=== PATIENT | female | born 1985 | race Caucasian/White ===

== ENCOUNTER 2016-12-02 18:40 | Emergency (ER) | payer OTHER ==
--- NOTE | 2016-12-02 21:18 | ED ORDER SUMMARY ---
..... Patient: BERNARDINO JACOBSON OrderSheet [facility] VisitID: [id number] [address] [place] [address] 31y, F Registration Date/Time: 12/02/2016 ORDER SHEET Weight: 58.9 kg (stated) Allergies: Latex GENERAL ORDERS: MEDICATION ORDERS: Bactrim DS PO (Tablet 800-160 mg) 2 tabs (NOW) (21:12/02/2016 [facility]) (Ack 21:17 RCollier R.N.) (21:20 RCollier R.N.) Keflex PO 500 mg (NOW) (21:14 12/02/2016 [facility]) (Ack 21:17 RCollier R.N.) (21:20 RCollier R.N.) Acetaminophen PO 1,000 mg (NOW) (21:12/02/2016 [facility]) (Ack 21:23 RCollier R.N.) (21:29 RCollier R.N.) Ibuprofen PO 600 mg (NOW) (21:22 12/02/2016 [facility]) (Ack 21:23 RCollier R.N.) (21:30 RCollier R.N.) Zofran ODT PO 4 mg (NOW) (21:22 12/02/2016 [facility]) (Ack 21:23 RCollier R.N.) (21:30 RCollier R.N.) IV FLUIDS: ORDER SHEET NOTES: [Electronically signed by Dannielle Yee R.N. (:12/02/2016)] [Electronically signed by Cleve Gupta DO (03:10 12/03/2016)] [Electronically locked/signed by Dannielle Yee R.N. (:12/02/2016)]
--- NOTE | 2016-12-02 21:18 | ED NURSING NOTES ---
Clinical Report - Nurses [facility] [address] [place] [address] 12/02/2016 18:42 Patient: BERNARDINO JACOBSON TRIAGE Triage time 19:14 Dec 02 2016. Acuity: LEVEL 4. Chief Complaint: RIGHT LOWER EXTREMITY PAIN, SWELLING and REDNESS. Alert. No acute distress. CJ COMA SCORE: [place] Coma Scale: 15- eyes open spontaneously (4); best verbal response- oriented x 4 (5); best motor response- obeys commands (6). --19:19 Fiona Jean Baptiste R.N. 19:14 12/02/16. BP: 138/69. HR: 94. RR: 18. O2 saturation: 98%. Temp: 98.2 F. Pain level now 10/10. --19:19 Fiona Jean Baptiste R.N. Weight: 58.9 kg stated. Height/Length: 63 inches Per Patient. BMI: 23. --19:14 Fiona Jean Baptiste R.N. Medications None. --19:16 Fiona Jean Baptiste R.N. Medication/allergy information source: the patient. --19:19 Fiona Jean Baptiste R.N. Allergies Latex. --19:16 Fiona Jean Baptiste R.N. History Arrived by private vehicle. Historian: patient. Primary physician (none). ( Right Toe Pain, pinky toe is red, irrigated, painful. 3 weeks off/on.). An injury may have occurred. This occurred (3 weeks). She has had trouble walking. 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 PAST MEDICAL HX: Tetanus status: up-to-date. Last normal menstrual period- few days ago. Denies current . SOCIAL HX: Smoker- current status unknown (cigarette). Occasional alcohol use. History of drug use: marijuana. FALL RISK ASSESSMENT: Fall risk assessment completed. No fall risk identified. NUTRITIONAL RISK ASSESSMENT: The nutritional risk assessment revealed no deficiencies. FUNCTIONAL ASSESSMENT: Functional assessment: no impairments noted. LEARNING NEEDS ASSESSMENT: The learning needs assessment revealed no barriers. SKIN INTEGRITY ASSESSMENT: Skin integrity risk assessment completed. No skin integrity risk identified. --19:19 Fiona Jean Baptiste R.N. PROBLEMS: Abscess Check. Abscess. Immunizations. LNMP - Last Normal Menstrual Period. --19:16 Fiona Jean Baptiste R.N. ADDITIONAL SURGERIES: Splenectomy. --19:16 Fiona Jean Baptiste R.N. Interventions ID band on patient. To room. --19:19 Fiona Jean Baptiste R.N. PHYSICAL ASSESSMENT Ambulatory to room. GENERAL / NEURO / PSYCH: Oriented X 4. Alert. Appears in no acute distress. EXTREMITIES: Neuro-vascular status intact to the extremity. Right fifth toe: tenderness, swelling and erythema. SKIN: Skin is warm and dry. --20:59 Dannielle Yee R.N. NURSING PROGRESS NOTES Call light placed in reach. Patient placed in chair. --21:00 Dannielle Yee R.N. Patient ready for evaluation- chart flagged. --21:00 Dannielle eYe R.N. 21:12/02/16. BP: 129/84. HR: 98. RR: 18. O2 saturation: 98% on room air. [place] pain scale: 4/10. --21:02 Dannielle Yee R.N. 21:12/02/2016 Bactrim DS (Sulfamethoxazole-TMP DS) PO Tablets 2 tab given. Allergies verified and confirmed 5 rights. --21:20 Dannielle Yee R.N. 21:12/02/2016 Keflex (Cephalexin) PO Tablets 500 mg given. Allergies verified and confirmed 5 rights. --21:20 Dannielle Yee R.N. 21:25 12/02/2016 Acetaminophen (APAP) PO Tablets 1000 mg given. Allergies verified and confirmed 5 rights. --21:29 Dannielle Yee R.N. 21:12/02/2016 Ibuprofen PO Tablets 600 mg given. Allergies verified and confirmed 5 rights. --21:30 Dannielle Yee R.N. 21:25 12/02/2016 Zofran ODT (Ondansetron) PO Oral Disintegrating Tablets 4 mg given. Allergies verified and confirmed 5 rights. --21:30 Dannielle Yee R.N. DISPOSITION / DISCHARGE Condition at departure: stable. No learning barriers present. Discharge instructions provided and reviewed with the patient. Reviewed medication(s) side effects, precautions, dosing and course information. Prescription(s) given to the patient. Patient verbalized understanding. Written instructions provided in Martiniquais. The patient was discharged home. She left the Emergency Department ambulatory and via private vehicle. Implementation Technician driving. --21:31 Dannielle Yee R.N. 21:30 12/02/16. BP: deferred. HR: deferred. RR: deferred. O2 saturation: deferred. Temp: deferred. Pain level now deferred. --21:31 Dannielle Yee R.N. Locked/Released at 12/02/2016 21:31 by Dannielle Yee R.N.
--- NOTE | 2016-12-02 21:18 | ED ORDER SUMMARY ---
..... Patient: BERNARDINO JACOBSON OrderSheet [facility] VisitID: [id number] [address] [place] [address] 31y, F Registration Date/Time: 12/02/2016 ORDER SHEET Weight: 58.9 kg (stated) Allergies: Latex GENERAL ORDERS: MEDICATION ORDERS: Bactrim DS PO (Tablet 800-160 mg) 2 tabs (NOW) (21:12/02/2016 [facility]) (Ack 21:17 RCollier R.N.) (21:20 RCollier R.N.) Keflex PO 500 mg (NOW) (21:14 12/02/2016 [facility]) (Ack 21:17 RCollier R.N.) (21:20 RCollier R.N.) Acetaminophen PO 1,000 mg (NOW) (21:12/02/2016 [facility]) (Ack 21:23 RCollier R.N.) (21:29 RCollier R.N.) Ibuprofen PO 600 mg (NOW) (21:22 12/02/2016 [facility]) (Ack 21:23 RCollier R.N.) (21:30 RCollier R.N.) Zofran ODT PO 4 mg (NOW) (21:22 12/02/2016 [facility]) (Ack 21:23 RCollier R.N.) (21:30 RCollier R.N.) IV FLUIDS: ORDER SHEET NOTES: [Electronically signed by Dannielle Yee R.N. (:12/02/2016)] [Electronically signed by Cleve Gupta DO (03:10 12/03/2016)] [Electronically locked/signed by Dannielle Yee R.N. (:12/02/2016)]
--- NOTE | 2016-12-02 21:18 | ED NURSING NOTES ---
Clinical Report - Nurses [facility] [address] [place] [address] 12/02/2016 18:42 Patient: BERNARDINO JACOBSON TRIAGE Triage time 19:14 Dec 02 2016. Acuity: LEVEL 4. Chief Complaint: RIGHT LOWER EXTREMITY PAIN, SWELLING and REDNESS. Alert. No acute distress. CJ COMA SCORE: [place] Coma Scale: 15- eyes open spontaneously (4); best verbal response- oriented x 4 (5); best motor response- obeys commands (6). --19:19 Fiona Jean Baptiste R.N. 19:14 12/02/16. BP: 138/69. HR: 94. RR: 18. O2 saturation: 98%. Temp: 98.2 F. Pain level now 10/10. --19:19 Fiona Jean Baptiste R.N. Weight: 58.9 kg stated. Height/Length: 63 inches Per Patient. BMI: 23. --19:14 Fiona Jean Baptiste R.N. Medications None. --19:16 Fiona Jean Baptiste R.N. Medication/allergy information source: the patient. --19:19 Fiona Jean Baptiste R.N. Allergies Latex. --19:16 Fiona Jean Baptiste R.N. History Arrived by private vehicle. Historian: patient. Primary physician (none). ( Right Toe Pain, pinky toe is red, irrigated, painful. 3 weeks off/on.). An injury may have occurred. This occurred (3 weeks). She has had trouble walking. 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 PAST MEDICAL HX: Tetanus status: up-to-date. Last normal menstrual period- few days ago. Denies current . SOCIAL HX: Smoker- current status unknown (cigarette). Occasional alcohol use. History of drug use: marijuana. FALL RISK ASSESSMENT: Fall risk assessment completed. No fall risk identified. NUTRITIONAL RISK ASSESSMENT: The nutritional risk assessment revealed no deficiencies. FUNCTIONAL ASSESSMENT: Functional assessment: no impairments noted. LEARNING NEEDS ASSESSMENT: The learning needs assessment revealed no barriers. SKIN INTEGRITY ASSESSMENT: Skin integrity risk assessment completed. No skin integrity risk identified. --19:19 Fiona Jean Baptiste R.N. PROBLEMS: Abscess Check. Abscess. Immunizations. LNMP - Last Normal Menstrual Period. --19:16 Fiona Jean Baptiste R.N. ADDITIONAL SURGERIES: Splenectomy. --19:16 Fiona Jean Baptiste R.N. Interventions ID band on patient. To room. --19:19 Fiona Jean Baptiste R.N. PHYSICAL ASSESSMENT Ambulatory to room. GENERAL / NEURO / PSYCH: Oriented X 4. Alert. Appears in no acute distress. EXTREMITIES: Neuro-vascular status intact to the extremity. Right fifth toe: tenderness, swelling and erythema. SKIN: Skin is warm and dry. --20:59 Dannielle Yee R.N. NURSING PROGRESS NOTES Call light placed in reach. Patient placed in chair. --21:00 Dannielle Yee R.N. Patient ready for evaluation- chart flagged. --21:00 Dannielle Yee R.N. 21:12/02/16. BP: 129/84. HR: 98. RR: 18. O2 saturation: 98% on room air. [place] pain scale: 4/10. --21:02 Dannielle Yee R.N. 21:12/02/2016 Bactrim DS (Sulfamethoxazole-TMP DS) PO Tablets 2 tab given. Allergies verified and confirmed 5 rights. --21:20 Dannielle Yee R.N. 21:12/02/2016 Keflex (Cephalexin) PO Tablets 500 mg given. Allergies verified and confirmed 5 rights. --21:20 Dannielle Yee R.N. 21:25 12/02/2016 Acetaminophen (APAP) PO Tablets 1000 mg given. Allergies verified and confirmed 5 rights. --21:29 Dannielle Yee R.N. 21:12/02/2016 Ibuprofen PO Tablets 600 mg given. Allergies verified and confirmed 5 rights. --21:30 Dannielle Yee R.N. 21:25 12/02/2016 Zofran ODT (Ondansetron) PO Oral Disintegrating Tablets 4 mg given. Allergies verified and confirmed 5 rights. --21:30 Dannielle Yee R.N. DISPOSITION / DISCHARGE Condition at departure: stable. No learning barriers present. Discharge instructions provided and reviewed with the patient. Reviewed medication(s) side effects, precautions, dosing and course information. Prescription(s) given to the patient. Patient verbalized understanding. Written instructions provided in Australian. The patient was discharged home. She left the Emergency Department ambulatory and via private vehicle. Information Technology Project Manager driving. --21:31 Dannielle Yee R.N. 21:30 12/02/16. BP: deferred. HR: deferred. RR: deferred. O2 saturation: deferred. Temp: deferred. Pain level now deferred. --21:31 Dannielle Yee R.N. Locked/Released at 12/02/2016 21:31 by Dannielle Yee R.N.
--- NOTE | 2016-12-02 21:18 | ED CLINICAL REPORT ---
Clinical Report - Physicians/Mid Levels [facility] [address] [place] [address] 12/02/2016 18:42 Patient: BERNARDINO JACOBSON Time Seen: 21:06. Arrived- By private vehicle. Historian- patient. HISTORY OF PRESENT ILLNESS Chief Complaint: LOWER EXTREMITY PAIN and SWELLING. Modifying factors- worsened by walking. Relieved by remaining still. Severity is described as being moderate. The quality is noted to be "pain". No radiation. This started about 3 weeks ago and is still present. It was gradual in onset and has been waxing/waning. Symptoms located in the area of the right foot. The patient has had redness (right 5th toe). She has had swelling, (right 5th toe). She has had difficulty walking. No bladder dysfunction, bowel dysfunction, sensory loss or motor loss. Patient notes the possibility of an injury. Similar symptoms previously: None. Recent medical care: Not recently seen/assessed. REVIEW OF SYSTEMS Last normal menstrual period- 3 days ago. No cough, chest pain, difficulty breathing, fever or neck pain. No back pain, headache, sore throat, abdominal pain or vomiting. No diarrhea, black stools, difficulty with urination or bloody stools. All systems otherwise negative, except as recorded above. PAST HISTORY See nurses notes. No history of DVT, heart disease, lung disease, renal disease or hypertension. No history of diabetes mellitus. ( Abscess). Surgeries: Splenectomy. Medications: None. Allergies: Latex. SOCIAL HISTORY Smoker- current status unknown. Occasional alcohol use. History of drug use: marijuana. Not an IV drug user. ADDITIONAL NOTES The nursing notes have been reviewed. PHYSICAL EXAM Vital Signs: 12/02/2016 19:14 BP: 138/69. HR: 94. RR: 18. O2 saturation: 98%. Temp: 98.2 F. Appearance: Alert. Oriented X3. Patient in mild distress. Eyes: Eyes normal inspection. No pale conjunctivae or scleral icterus. ENT: Pharynx normal. No pharyngeal erythema or tonsillar exudate. Neck: Normal inspection. Neck supple. CVS: Normal heart rate and rhythm. Heart sounds normal. Respiratory: No respiratory distress. Breath sounds normal. Abdomen: Soft and nontender. Back: Normal inspection. Skin: No cyanosis. Skin warm and dry. (erythema right 5th toe). No pallor or diaphoresis. Extremities: Right foot: mild erythema and swelling and moderate tenderness located in the fifth toe(s). Neurovascular intact distally. No laceration, abrasion, ecchymosis, puncture wound or foreign body. No deformity. No lower extremity edema. No calf tenderness. Extremities otherwise negative. Neuro, Vascular and Tendons: No pulse deficit present. Neuro: Oriented X 3. No motor deficit. LABS, X-RAYS, AND EKG Pulse Oximetry: 12/02/2016 19:14 O2 saturation: 98%. (FIO2 - room air). Interpretation: normal. PROGRESS AND PROCEDURES Course of Care: Acetaminophen 1000 mg PO given. Ibuprofen 600 mg PO given. Bactrim DS 2 tabs PO. Keflex 500 mg PO given. Zofran 4 mg ODT PO given. Pt with subacute symptoms. No systemic symtpoms / fever. Nothing evident to I&D. No history of IDU per pt - septic emboli unlikely. No h/o a. fib. Pt will need close out pt follow up - she agrees to do this or return for new or worsening or not improving symptoms or any concerns. Patient/family counseled. Old ED records reviewed. Disposition: Discharged. Condition: stable and improved. CLINICAL IMPRESSION Cellulitis of the right 5th toe. Occasional substance abuse- tobacco (cigarettes), marijuana. History of splenectomy. INSTRUCTIONS Elevate affected areas above chest level. Warnings: Further evaluation is necessary. It is very important to follow up with a physician. INFECTION: Watch for signs of infection (increasing heat and redness, pus-like drainage, swelling, or increased pain). Return or see your doctor if these signs occur. GENERAL WARNINGS: Return or contact your physician immediately if your condition worsens or changes unexpectedly, if not improving as expected, or if other problems arise. return for new or worsening or not improving symptoms or any concerns. Prescription Medications: Cephalexin 500 mg: take 1 capsule orally every 6 hours for 10 days. No refill. Trimethoprim-Sulfamethoxazole take 1 tablet orally every 12 hours for 10 days. No refill. OTC Medications: Acetaminophen (available over the counter): take according to label instructions. Motrin (available over the counter): take according to label instructions. Follow-up: Follow up with your doctor tomorrow. Follow-up with: Rhtet Gonzalez DPM, Podiatry, , [address] [place] [address]. [address], [place], [address] Follow up in about two days. Follow-up with: [facility], , , [address] [place] [address], , [place], ; [facility], , , [address], [place] [address]; [facility], Family Practice, , [address] [place] [address], , [place] [address] Follow up in about two days. (Electronically signed by Cleve Gupta DO 12/03/2016 3:10)
--- NOTE | 2016-12-02 21:18 | ED CLINICAL REPORT ---
Clinical Report - Physicians/Mid Levels [facility] [address] [place] [address] 12/02/2016 18:42 Patient: BERNARDINO JACOBSON Time Seen: 21:06. Arrived- By private vehicle. Historian- patient. HISTORY OF PRESENT ILLNESS Chief Complaint: LOWER EXTREMITY PAIN and SWELLING. Modifying factors- worsened by walking. Relieved by remaining still. Severity is described as being moderate. The quality is noted to be "pain". No radiation. This started about 3 weeks ago and is still present. It was gradual in onset and has been waxing/waning. Symptoms located in the area of the right foot. The patient has had redness (right 5th toe). She has had swelling, (right 5th toe). She has had difficulty walking. No bladder dysfunction, bowel dysfunction, sensory loss or motor loss. Patient notes the possibility of an injury. Similar symptoms previously: None. Recent medical care: Not recently seen/assessed. REVIEW OF SYSTEMS Last normal menstrual period- 3 days ago. No cough, chest pain, difficulty breathing, fever or neck pain. No back pain, headache, sore throat, abdominal pain or vomiting. No diarrhea, black stools, difficulty with urination or bloody stools. All systems otherwise negative, except as recorded above. PAST HISTORY See nurses notes. No history of DVT, heart disease, lung disease, renal disease or hypertension. No history of diabetes mellitus. ( Abscess). Surgeries: Splenectomy. Medications: None. Allergies: Latex. SOCIAL HISTORY Smoker- current status unknown. Occasional alcohol use. History of drug use: marijuana. Not an IV drug user. ADDITIONAL NOTES The nursing notes have been reviewed. PHYSICAL EXAM Vital Signs: 12/02/2016 19:14 BP: 138/69. HR: 94. RR: 18. O2 saturation: 98%. Temp: 98.2 F. Appearance: Alert. Oriented X3. Patient in mild distress. Eyes: Eyes normal inspection. No pale conjunctivae or scleral icterus. ENT: Pharynx normal. No pharyngeal erythema or tonsillar exudate. Neck: Normal inspection. Neck supple. CVS: Normal heart rate and rhythm. Heart sounds normal. Respiratory: No respiratory distress. Breath sounds normal. Abdomen: Soft and nontender. Back: Normal inspection. Skin: No cyanosis. Skin warm and dry. (erythema right 5th toe). No pallor or diaphoresis. Extremities: Right foot: mild erythema and swelling and moderate tenderness located in the fifth toe(s). Neurovascular intact distally. No laceration, abrasion, ecchymosis, puncture wound or foreign body. No deformity. No lower extremity edema. No calf tenderness. Extremities otherwise negative. Neuro, Vascular and Tendons: No pulse deficit present. Neuro: Oriented X 3. No motor deficit. LABS, X-RAYS, AND EKG Pulse Oximetry: 12/02/2016 19:14 O2 saturation: 98%. (FIO2 - room air). Interpretation: normal. PROGRESS AND PROCEDURES Course of Care: Acetaminophen 1000 mg PO given. Ibuprofen 600 mg PO given. Bactrim DS 2 tabs PO. Keflex 500 mg PO given. Zofran 4 mg ODT PO given. Pt with subacute symptoms. No systemic symtpoms / fever. Nothing evident to I&D. No history of IDU per pt - septic emboli unlikely. No h/o a. fib. Pt will need close out pt follow up - she agrees to do this or return for new or worsening or not improving symptoms or any concerns. Patient/family counseled. Old ED records reviewed. Disposition: Discharged. Condition: stable and improved. CLINICAL IMPRESSION Cellulitis of the right 5th toe. Occasional substance abuse- tobacco (cigarettes), marijuana. History of splenectomy. INSTRUCTIONS Elevate affected areas above chest level. Warnings: Further evaluation is necessary. It is very important to follow up with a physician. INFECTION: Watch for signs of infection (increasing heat and redness, pus-like drainage, swelling, or increased pain). Return or see your doctor if these signs occur. GENERAL WARNINGS: Return or contact your physician immediately if your condition worsens or changes unexpectedly, if not improving as expected, or if other problems arise. return for new or worsening or not improving symptoms or any concerns. Prescription Medications: Cephalexin 500 mg: take 1 capsule orally every 6 hours for 10 days. No refill. Trimethoprim-Sulfamethoxazole take 1 tablet orally every 12 hours for 10 days. No refill. OTC Medications: Acetaminophen (available over the counter): take according to label instructions. Motrin (available over the counter): take according to label instructions. Follow-up: Follow up with your doctor tomorrow. Follow-up with: Rhett Gonzalez DPM, Podiatry, , [address] [place] [address]. [address], [place], [address] Follow up in about two days. Follow-up with: [facility], , , [address] [place] [address], , [place], ; [facility], , , [address], [place] [address]; [facility], Family Practice, , [address] [place] [address], , [place] [address] Follow up in about two days. (Electronically signed by Cleve Gupta DO 12/03/2016 3:10)
--- NOTE | 2016-12-03 03:11 | ED MAR SUMMARY ---
..... Medication Administration Record [facility] [address] [place] [address] Patient: BERNARDINO JACOBSON Visit ID: [id number] 31y, F Weight: 58.9 kg Height/Length: 63 in BMI: 23 ALLERGIES: Latex Given :12/02/2016 Dannielle Yee R.N. Medication Administered: BACTRIM DS [PO] (SULFAMETHOXAZOLE-TMP DS), Dose: 2 tab Tablets PO. Medication Ordered: Bactrim DS PO (Tablet 800-160 mg) 2 tabs (NOW). Given 12/02/2016 Dannielle Yee R.N. Medication Administered: KEFLEX [PO] (CEPHALEXIN), Dose: 500 mg Tablets PO. Medication Ordered: Keflex PO 500 mg (NOW). Given 12/02/2016 Dannielle Yee R.N. Medication Administered: ACETAMINOPHEN [PO] (APAP), Dose: 1000 mg Tablets PO. Medication Ordered: Acetaminophen PO 1,000 mg (NOW). Given 12/02/2016 Dannielle Yee R.N. Medication Administered: IBUPROFEN [PO], Dose: 600 mg Tablets PO. Medication Ordered: Ibuprofen PO 600 mg (NOW). Given 12/02/2016 Dannielle Yee R.N. Medication Administered: ZOFRAN ODT [PO] (ONDANSETRON), Dose: 4 mg Oral Disintegrating Tablets PO. Medication Ordered: Zofran ODT PO 4 mg (NOW).
--- NOTE | 2016-12-03 03:11 | ED MED RECONCILIATION SUMMARY ---
Patient: BERNARDINO JACOBSON Medication Reconciliation Report [facility] VisitID: [id number] [place] [address] 31y, F Registration Date/Time: 12/02/2016 Weight: 58.9 kg Height/Length: 63 in. BMI: 23.0 ALLERGIES: Latex The patient's Home Medications are listed below: NONE. The source(s) of the original Home Medication information: patient The following Medications were given to the patient in the Emergency Department: Bactrim DS [PO] PO 2 tab, administered: 12/02/2016 9:19:00 PM Keflex [PO] PO 500 mg, administered: 12/02/2016 9:19:00 PM Acetaminophen [PO] PO 1000 mg, administered: 12/02/2016 9:25:00 PM Ibuprofen [PO] PO 600 mg, administered: 12/02/2016 9:25:00 PM Zofran ODT [PO] PO 4 mg, administered: 12/02/2016 9:25:00 PM The following Medications were prescribed to the patient: Acetaminophen (available over the counter): take according to label instructions. -- Cleve Gupta DO Motrin (available over the counter): take according to label instructions. -- Cleve Gupta DO Cephalexin 500 mg: take 1 capsule orally every 6 hours for 10 days. No refill. -- Cleve Gupta DO Trimethoprim-Sulfamethoxazole take 1 tablet orally every 12 hours for 10 days. No refill. -- Cleve Gupta DO
--- NOTE | 2016-12-03 03:11 | ED MED RECONCILIATION SUMMARY ---
Patient: BERNARDINO JACOBSON Medication Reconciliation Report [facility] VisitID: [id number] [place] [address] 31y, F Registration Date/Time: 12/02/2016 Weight: 58.9 kg Height/Length: 63 in. BMI: 23.0 ALLERGIES: Latex The patient's Home Medications are listed below: NONE. The source(s) of the original Home Medication information: patient The following Medications were given to the patient in the Emergency Department: Bactrim DS [PO] PO 2 tab, administered: 12/02/2016 9:19:00 PM Keflex [PO] PO 500 mg, administered: 12/02/2016 9:19:00 PM Acetaminophen [PO] PO 1000 mg, administered: 12/02/2016 9:25:00 PM Ibuprofen [PO] PO 600 mg, administered: 12/02/2016 9:25:00 PM Zofran ODT [PO] PO 4 mg, administered: 12/02/2016 9:25:00 PM The following Medications were prescribed to the patient: Acetaminophen (available over the counter): take according to label instructions. -- Cleve Gupta DO Motrin (available over the counter): take according to label instructions. -- Cleve Gupta DO Cephalexin 500 mg: take 1 capsule orally every 6 hours for 10 days. No refill. -- Cleve Gupta DO Trimethoprim-Sulfamethoxazole take 1 tablet orally every 12 hours for 10 days. No refill. -- Cleve Gupta DO
--- NOTE | 2016-12-03 03:11 | ED DISCHARGE INSTRUCTIONS ---
Patient: BERNARDINO JACOBSON General Instructions [facility] VisitID: [id number] [address] [place] [address] 31y, F Registration Date/Time: 12/02/2016 Cellulitis of the right 5th toe. Occasional substance abuse- tobacco (cigarettes), marijuana. History of splenectomy. INSTRUCTIONS Elevate affected areas above chest level. Warnings: Further evaluation is necessary. It is very important to follow up with a physician. INFECTION: Watch for signs of infection (increasing heat and redness, pus-like drainage, swelling, or increased pain). Return or see your doctor if these signs occur. GENERAL WARNINGS: Return or contact your physician immediately if your condition worsens or changes unexpectedly, if not improving as expected, or if other problems arise. return for new or worsening or not improving symptoms or any concerns. Prescription Medications: Cephalexin 500 mg: take 1 capsule orally every 6 hours for 10 days. No refill. Trimethoprim-Sulfamethoxazole take 1 tablet orally every 12 hours for 10 days. No refill. OTC Medications: Acetaminophen (available over the counter): take according to label instructions. Motrin (available over the counter): take according to label instructions. Follow-up: Follow up with your doctor tomorrow. Follow-up with: Rhett Gonzalez DPM, Podiatry, , [address] [place] [address]. [address], [place] [address] Follow up in about two days. Follow-up with: [facility], , , [address] [place] [address], , [place], ; [facility], , , [address], [place] [address]; [facility], Family Practice, , [address] [place] [address] Follow up in about two days. ADDITIONAL INFORMATION Cellulitis You have an infection of the skin known as cellulitis. This usually starts with a scrape, cut, insect bite, blister or other opening in the skin which becomes infected. This is a serious condition. It must be watched closely to be sure the infection is not spreading. With antibiotic treatment, the size of the red area will gradually shrink in size until the skin returns to normal. This will take 7-10 days. The red area should never increase in size once the antibiotic medicine has been started. Occasionally, an infection will be resistant to one antibiotic and another one will have to be used. Home Care: 1) Limit the use of the affected part, since excess movement can cause the infection to spread. 2) If the infection is on your leg, walk as little as possible during the first few days of the treatment. Keep your leg elevated while sitting. This will reduce swelling. 3) Take all of the antibiotic medicine exactly as directed until it is gone. Be careful not to miss any doses, especially during the first seven days. Follow Up with your doctor or this facility as directed. Check the infected area daily for the warning signs listed below. Get Prompt Medical Attention if any of the following occur: -- Spreading area of redness -- Increasing swelling or pain -- Appearance of pus or drainage -- Fever over 100.4 F (38.0 C) oral, or over 101.4 F (38.6 C) rectal, after two days on antibiotics Marijuana Abuse Marijuana is the most widely used illegal drug in the [place]. It is called by various names such as pot, weed, blunts, grass, reefer, ganja, hash, hashish. It is usually smoked but can be mixed with foods or brewed as a tea. It is sometimes sold with PCP (Saulo Dust) or amphetamine mixed in it. These drugs can cause other harmful side effects. Marijuana can cause the following effects: Changes in mood (stimulated, happy, drowsy, depressed, paranoid) Hallucinations Increased heart rate and blood pressure Increased appetite Time distortion, difficulty concentrating, impaired memory Lung damage (similar to cigarettes with chronic cough, wheezing, frequent colds and bronchitis) You can become psychologically dependent on marijuana. That means the craving to use the drug is emotional or psychological rather than due to physical withdrawal. Is Marijuana Running Your Life? Here are some of the signs: Relying on marijuana to feel good, forget problems, deal with stress or to relax Wanting to be alone most of the time or only with others who use drugs Losing interest in things that used to be important Changes in school or job performance or attendance Spending a lot of time thinking about how to get marijuana Stealing or selling your things so you can buy marijuana Unable to stop using even though you may want to quit Increasing anxiety, anger,or depression Sleeping too much, changes in eating habits (weight loss or gain) Needing to use more to get the same effect Home Care Once you have become addicted to any drug, quitting is hard to do. Most people find they can't quit without help. So, dont try to do this alone. Talk to someone you trust who can support you. Seek professional help. Avoid people and places where drugs are used. That only increases the temptation to use. Follow Up with your doctor or as advised by our staff. For more information or a referral to a treatment center in your area, contact: Your local mental health center or the National Alcohol and Substance Abuse Information Center (811)-974-2832 www.addictioncareMojeek.[employer] [place] on Alcoholism and Drug Dependence 788-202-AGPI www.ncadd.org Marijuana Anonymous 961-058-3021 www.marijuana-anonymous.org Get Prompt Medical Attention if any of the following occur: You feel extreme depression, fear, anxiety, or anger toward yourself or others You feel out of control You feel that you may try to harm yourself or another Cephalexin Monohydrate Oral tablet What is this medicine? CEPHALEXIN (sef a FRANSISCA in) is a cephalosporin antibiotic. It is used to treat certain kinds of bacterial infections It will not work for colds, flu, or other viral infections. How should I use this medicine? Take this medicine by mouth with a full glass of water. Follow the directions on the prescription label. This medicine can be taken with or without food. Take your medicine at regular intervals. Do not take your medicine more often than directed. Take all of your medicine as directed even if you think you are better. Do not skip doses or stop your medicine early. Talk to your vacuum plastic forming machine operator regarding the use of this medicine in children. While this drug may be prescribed for selected conditions, precautions do apply. What side effects may I notice from receiving this medicine? Side effects that you should report to your doctor or health customer care specialist as soon as possible: allergic reactions like skin rash, itching or hives, swelling of the face, lips, or tongue breathing problems pain or trouble passing urine redness, blistering, peeling or loosening of the skin, including inside the mouth severe or watery diarrhea unusually weak or tired yellowing of the eyes, skin Side effects that usually do not require medical attention (report to your doctor or health customer care specialist if they continue or are bothersome): gas or heartburn genital or anal irritation headache joint or muscle pain nausea, vomiting What may interact with this medicine? probenecid some other antibiotics What if I miss a dose? If you miss a dose, take it as soon as you can. If it is almost time for your next dose, take only that dose. Do not take double or extra doses. There should be at least 4 to 6 hours between doses. Where should I keep my medicine? Keep out of the reach of children. Store at room temperature between 59 and 86 degrees F (15 and 30 degrees C). Throw away any unused medicine after the expiration date. What should I tell my health care provider before I take this medicine? They need to know if you have any of these conditions: kidney disease stomach or intestine problems, especially colitis an unusual or allergic reaction to cephalexin, other cephalosporins, penicillins, other antibiotics, medicines, foods, dyes or preservatives or trying to get breast-feeding What should I watch for while using this medicine? Tell your doctor or health customer care specialist if your symptoms do not begin to improve in a few days. Do not treat diarrhea with over the counter products. Contact your doctor if you have diarrhea that lasts more than 2 days or if it is severe and watery. If you have diabetes, you may get a false-positive result for sugar in your urine. Check with your doctor or health customer care specialist. Sulfamethoxazole, Trimethoprim Oral tablet What is this medicine? SULFAMETHOXAZOLE; TRIMETHOPRIM or SMX-TMP (suhl fuh meth OK shefali zohl; trye METH oh prim) is a combination of a sulfonamide antibiotic and a second antibiotic, trimethoprim. It is used to treat or prevent certain kinds of bacterial infections. It will not work for colds, flu, or other viral infections. How should I use this medicine? Take this medicine by mouth with a full glass of water. Follow the directions on the prescription label. Take your medicine at regular intervals. Do not take it more often than directed. Do not skip doses or stop your medicine early. Talk to your vacuum plastic forming machine operator regarding the use of this medicine in children. Special care may be needed. This medicine has been used in children as young as 2 months of age. What side effects may I notice from receiving this medicine? Side effects that you should report to your doctor or health customer care specialist as soon as possible: allergic reactions like skin rash or hives, swelling of the face, lips, or tongue breathing problems fever or chills, sore throat irregular heartbeat, chest pain joint or muscle pain pain or difficulty passing urine red pinpoint spots on skin redness, blistering, peeling or loosening of the skin, including inside the mouth unusual bleeding or bruising unusually weak or tired yellowing of the eyes or skin Side effects that usually do not require medical attention (report to your doctor or health customer care specialist if they continue or are bothersome): diarrhea dizziness headache loss of appetite nausea, vomiting nervousness What may interact with this medicine? Do not take this medicine with any of the following medications: aminobenzoate potassium dofetilide metronidazole This medicine may also interact with the following medications: GUILLAUME inhibitors like benazepril, enalapril, lisinopril, and ramipril cyclosporine digoxin diuretics indomethacin medicines for diabetes methenamine methotrexate phenytoin potassium supplements pyrimethamine sulfinpyrazone tricyclic antidepressants warfarin What if I miss a dose? If you miss a dose, take it as soon as you can. If it is almost time for your next dose, take only that dose. Do not take double or extra doses. Where should I keep my medicine? Keep out of the reach of children. Store at room temperature between 20 to 25 degrees C (68 to 77 degrees F). Protect from light. Throw away any unused medicine after the expiration date. What should I tell my health care provider before I take this medicine? They need to know if you have any of these conditions: anemia asthma being treated with anticonvulsants if you frequently drink alcohol containing drinks kidney disease liver disease low level of folic acid or [id number] dehydrogenase poor nutrition or malabsorption porphyria severe allergies thyroid disorder an unusual or allergic reaction to sulfamethoxazole, trimethoprim, sulfa drugs, other medicines, foods, dyes, or preservatives or trying to get breast-feeding What should I watch for while using this medicine? Tell your doctor or health customer care specialist if your symptoms do not improve. Drink several glasses of water a day to reduce the risk of kidney problems. Do not treat diarrhea with over the counter products. Contact your doctor if you have diarrhea that lasts more than 2 days or if it is severe and watery. This medicine can make you more sensitive to the sun. Keep out of the sun. If you cannot avoid being in the sun, wear protective clothing and use a sunscreen. Do not use sun lamps or tanning beds/booths. Acetaminophen Oral tablet What is this medicine? ACETAMINOPHEN (a set a JERONIMO omega fen) is a pain reliever. It is used to treat mild pain and fever. How should I use this medicine? Take this medicine by mouth with a glass of water. Follow the directions on the package or prescription label. Take your medicine at regular intervals. Do not take your medicine more often than directed. Talk to your vacuum plastic forming machine operator regarding the use of this medicine in children. While this drug may be prescribed for children as young as 6 years of age for selected conditions, precautions do apply. What side effects may I notice from receiving this medicine? Side effects that you should report to your doctor or health customer care specialist as soon as possible: allergic reactions like skin rash, itching or hives, swelling of the face, lips, or tongue breathing problems fever or sore throat redness, blistering, peeling or loosening of the skin, including inside the mouth trouble passing urine or change in the amount of urine unusual bleeding or bruising unusually weak or tired yellowing of the eyes or skin Side effects that usually do not require medical attention (report to your doctor or health customer care specialist if they continue or are bothersome): headache nausea, stomach upset What may interact with this medicine? alcohol imatinib isoniazid other medicines with acetaminophen What if I miss a dose? If you miss a dose, take it as soon as you can. If it is almost time for your next dose, take only that dose. Do not take double or extra doses. Where should I keep my medicine? Keep out of reach of children. Store at room temperature between 20 and 25 degrees C (68 and 77 degrees F). Protect from moisture and heat. Throw away any unused medicine after the expiration date. What should I tell my health care provider before I take this medicine? They need to know if you have any of these conditions: if you frequently drink alcohol containing drinks liver disease an unusual or allergic reaction to acetaminophen, other medicines, foods, dyes or preservatives or trying to get breast-feeding What should I watch for while using this medicine? Tell your doctor or health customer care specialist if the pain lasts more than 10 days (5 days for children), if it gets worse, or if there is a new or different kind of pain. Also, check with your doctor if a fever lasts for more than 3 days. Do not take other medicines that contain acetaminophen with this medicine. Always read labels carefully. If you have questions, ask your doctor or pharmacist. If you take too much acetaminophen get medical help right away. Too much acetaminophen can be very dangerous and cause liver damage. Even if you do not have symptoms, it is important to get help right away. Ibuprofen Oral tablet What is this medicine? IBUPROFEN (eye BYOO proe fen) is a non-steroidal anti-inflammatory drug (NSAID). It is used for dental pain, fever, headaches or migraines, osteoarthritis, rheumatoid arthritis, or painful monthly periods. It can also relieve minor aches and pains caused by a cold, flu, or sore throat. How should I use this medicine? Take this medicine by mouth with a glass of water. Follow the directions on the prescription label. Take this medicine with food if your stomach gets upset. Try to not lie down for at least 10 minutes after you take the medicine. Take your medicine at regular intervals. Do not take your medicine more often than directed. A special MedGuide will be given to you by the pharmacist with each prescription and refill. Be sure to read this information carefully each time. Talk to your vacuum plastic forming machine operator regarding the use of this medicine in children. Special care may be needed. What side effects may I notice from receiving this medicine? Side effects that you should report to your doctor or health customer care specialist as soon as possible: allergic reactions like skin rash, itching or hives, swelling of the face, lips, or tongue black or bloody stools, blood in the urine or in vomit breathing problems changes in vision chest pain general ill feeling or flu-like symptoms nausea or vomiting redness, blistering, peeling or loosening of the skin, including inside the mouth slurred speech or weakness on one side of the body stomach pain unexplained weight gain or swelling unusually weak or tired yellowing of eyes or skin Side effects that usually do not require medical attention (report to your doctor or health customer care specialist if they continue or are bothersome): constipation or diarrhea dizziness gas or heartburn stomach upset What may interact with this medicine? Do not take this medicine with any of the following medications: cidofovir ketorolac methotrexate pemetrexed This medicine may also interact with the following medications: alcohol aspirin diuretics lithium other drugs for inflammation like prednisone warfarin What if I miss a dose? If you miss a dose, take it as soon as you can. If it is almost time for your next dose, take only that dose. Do not take double or extra doses. Where should I keep my medicine? Keep out of the reach of children. Store at room temperature between 15 and 30 degrees C (59 and 86 degrees F). Keep container tightly closed. Throw away any unused medicine after the expiration date. What should I tell my health care provider before I take this medicine? They need to know if you have any of these conditions: asthma cigarette smoker drink more than 3 alcohol containing drinks a day heart disease or circulation problems such as heart failure or leg edema (fluid retention) high blood pressure kidney disease liver disease stomach bleeding or ulcers an unusual or allergic reaction to ibuprofen, aspirin, other NSAIDS, other medicines, foods, dyes, or preservatives or trying to get breast-feeding What should I watch for while using this medicine? Tell your doctor or healthcare professional if your symptoms do not start to get better or if they get worse. This medicine does not prevent heart attack or stroke. In fact, this medicine may increase the chance of a heart attack or stroke. The chance may increase with longer use of this medicine and in people who have heart disease. If you take aspirin to prevent heart attack or stroke, talk with your doctor or health customer care specialist. Do not take other medicines that contain aspirin, ibuprofen, or naproxen with this medicine. Side effects such as stomach upset, nausea, or ulcers may be more likely to occur. Many medicines available without a prescription should not be taken with this medicine. This medicine can cause ulcers and bleeding in the stomach and intestines at any time during treatment. Ulcers and bleeding can happen without warning symptoms and can cause . To reduce your risk, do not smoke cigarettes or drink alcohol while you are taking this medicine. You may get drowsy or dizzy. Do not drive, use machinery, or do anything that needs mental alertness until you know how this medicine affects you. Do not stand or sit up quickly, especially if you are an older patient. This reduces the risk of dizzy or fainting spells. This medicine can cause you to bleed more easily. Try to avoid damage to your teeth and gums when you brush or floss your teeth. You have been given the following additional information: Cellulitis Marijuana Abuse Cephalexin Monohydrate Oral tablet Sulfamethoxazole, Trimethoprim Oral tablet Acetaminophen Oral tablet Ibuprofen Oral tablet (Electronically signed by Cleve Gupta DO 12/03/2016 3:10)
--- NOTE | 2016-12-03 03:11 | ED DISCHARGE INSTRUCTIONS ---
Patient: BERNARDINO JACOBSON General Instructions [facility] VisitID: [id number] [address] [place] [place] [address] 31y, F Registration Date/Time: 12/02/2016 Cellulitis of the right 5th toe. Occasional substance abuse- tobacco (cigarettes), marijuana. History of splenectomy. INSTRUCTIONS Elevate affected areas above chest level. Warnings: Further evaluation is necessary. It is very important to follow up with a physician. INFECTION: Watch for signs of infection (increasing heat and redness, pus-like drainage, swelling, or increased pain). Return or see your doctor if these signs occur. GENERAL WARNINGS: Return or contact your physician immediately if your condition worsens or changes unexpectedly, if not improving as expected, or if other problems arise. return for new or worsening or not improving symptoms or any concerns. Prescription Medications: Cephalexin 500 mg: take 1 capsule orally every 6 hours for 10 days. No refill. Trimethoprim-Sulfamethoxazole take 1 tablet orally every 12 hours for 10 days. No refill. OTC Medications: Acetaminophen (available over the counter): take according to label instructions. Motrin (available over the counter): take according to label instructions. Follow-up: Follow up with your doctor tomorrow. Follow-up with: Rhett Gonzalez DPM, Podiatry, , [address] [place] [address]. [address], [place] [address] Follow up in about two days. Follow-up with: [facility], , , [address] [place] [address], , [place], ; [facility], , , [address], [place] [address]; [facility], Family Practice, , [address] [place] [address] Follow up in about two days. ADDITIONAL INFORMATION Cellulitis You have an infection of the skin known as cellulitis. This usually starts with a scrape, cut, insect bite, blister or other opening in the skin which becomes infected. This is a serious condition. It must be watched closely to be sure the infection is not spreading. With antibiotic treatment, the size of the red area will gradually shrink in size until the skin returns to normal. This will take 7-10 days. The red area should never increase in size once the antibiotic medicine has been started. Occasionally, an infection will be resistant to one antibiotic and another one will have to be used. Home Care: 1) Limit the use of the affected part, since excess movement can cause the infection to spread. 2) If the infection is on your leg, walk as little as possible during the first few days of the treatment. Keep your leg elevated while sitting. This will reduce swelling. 3) Take all of the antibiotic medicine exactly as directed until it is gone. Be careful not to miss any doses, especially during the first seven days. Follow Up with your doctor or this facility as directed. Check the infected area daily for the warning signs listed below. Get Prompt Medical Attention if any of the following occur: -- Spreading area of redness -- Increasing swelling or pain -- Appearance of pus or drainage -- Fever over 100.4 F (38.0 C) oral, or over 101.4 F (38.6 C) rectal, after two days on antibiotics Marijuana Abuse Marijuana is the most widely used illegal drug in the [place]. It is called by various names such as pot, weed, blunts, grass, reefer, ganja, hash, hashish. It is usually smoked but can be mixed with foods or brewed as a tea. It is sometimes sold with PCP (Saulo Dust) or amphetamine mixed in it. These drugs can cause other harmful side effects. Marijuana can cause the following effects: Changes in mood (stimulated, happy, drowsy, depressed, paranoid) Hallucinations Increased heart rate and blood pressure Increased appetite Time distortion, difficulty concentrating, impaired memory Lung damage (similar to cigarettes with chronic cough, wheezing, frequent colds and bronchitis) You can become psychologically dependent on marijuana. That means the craving to use the drug is emotional or psychological rather than due to physical withdrawal. Is Marijuana Running Your Life? Here are some of the signs: Relying on marijuana to feel good, forget problems, deal with stress or to relax Wanting to be alone most of the time or only with others who use drugs Losing interest in things that used to be important Changes in school or job performance or attendance Spending a lot of time thinking about how to get marijuana Stealing or selling your things so you can buy marijuana Unable to stop using even though you may want to quit Increasing anxiety, anger,or depression Sleeping too much, changes in eating habits (weight loss or gain) Needing to use more to get the same effect Home Care Once you have become addicted to any drug, quitting is hard to do. Most people find they can't quit without help. So, dont try to do this alone. Talk to someone you trust who can support you. Seek professional help. Avoid people and places where drugs are used. That only increases the temptation to use. Follow Up with your doctor or as advised by our staff. For more information or a referral to a treatment center in your area, contact: Your local mental health center or the National Alcohol and Substance Abuse Information Center (109)-124-3678 www.addictioncareDoNation.IceWEB National [place] on Alcoholism and Drug Dependence 733-243-QYOT www.ncadd.org Marijuana Anonymous 891-894-5888 www.marijuana-anonymous.org Get Prompt Medical Attention if any of the following occur: You feel extreme depression, fear, anxiety, or anger toward yourself or others You feel out of control You feel that you may try to harm yourself or another Cephalexin Monohydrate Oral tablet What is this medicine? CEPHALEXIN (sef a FRANSISCA in) is a cephalosporin antibiotic. It is used to treat certain kinds of bacterial infections It will not work for colds, flu, or other viral infections. How should I use this medicine? Take this medicine by mouth with a full glass of water. Follow the directions on the prescription label. This medicine can be taken with or without food. Take your medicine at regular intervals. Do not take your medicine more often than directed. Take all of your medicine as directed even if you think you are better. Do not skip doses or stop your medicine early. Talk to your clinical statistics manager regarding the use of this medicine in children. While this drug may be prescribed for selected conditions, precautions do apply. What side effects may I notice from receiving this medicine? Side effects that you should report to your doctor or health animal care attendant as soon as possible: allergic reactions like skin rash, itching or hives, swelling of the face, lips, or tongue breathing problems pain or trouble passing urine redness, blistering, peeling or loosening of the skin, including inside the mouth severe or watery diarrhea unusually weak or tired yellowing of the eyes, skin Side effects that usually do not require medical attention (report to your doctor or health animal care attendant if they continue or are bothersome): gas or heartburn genital or anal irritation headache joint or muscle pain nausea, vomiting What may interact with this medicine? probenecid some other antibiotics What if I miss a dose? If you miss a dose, take it as soon as you can. If it is almost time for your next dose, take only that dose. Do not take double or extra doses. There should be at least 4 to 6 hours between doses. Where should I keep my medicine? Keep out of the reach of children. Store at room temperature between 59 and 86 degrees F (15 and 30 degrees C). Throw away any unused medicine after the expiration date. What should I tell my health care provider before I take this medicine? They need to know if you have any of these conditions: kidney disease stomach or intestine problems, especially colitis an unusual or allergic reaction to cephalexin, other cephalosporins, penicillins, other antibiotics, medicines, foods, dyes or preservatives or trying to get breast-feeding What should I watch for while using this medicine? Tell your doctor or health animal care attendant if your symptoms do not begin to improve in a few days. Do not treat diarrhea with over the counter products. Contact your doctor if you have diarrhea that lasts more than 2 days or if it is severe and watery. If you have diabetes, you may get a false-positive result for sugar in your urine. Check with your doctor or health animal care attendant. Sulfamethoxazole, Trimethoprim Oral tablet What is this medicine? SULFAMETHOXAZOLE; TRIMETHOPRIM or SMX-TMP (suhl fuh meth OK shefali zohl; trye METH oh prim) is a combination of a sulfonamide antibiotic and a second antibiotic, trimethoprim. It is used to treat or prevent certain kinds of bacterial infections. It will not work for colds, flu, or other viral infections. How should I use this medicine? Take this medicine by mouth with a full glass of water. Follow the directions on the prescription label. Take your medicine at regular intervals. Do not take it more often than directed. Do not skip doses or stop your medicine early. Talk to your clinical statistics manager regarding the use of this medicine in children. Special care may be needed. This medicine has been used in children as young as 2 months of age. What side effects may I notice from receiving this medicine? Side effects that you should report to your doctor or health animal care attendant as soon as possible: allergic reactions like skin rash or hives, swelling of the face, lips, or tongue breathing problems fever or chills, sore throat irregular heartbeat, chest pain joint or muscle pain pain or difficulty passing urine red pinpoint spots on skin redness, blistering, peeling or loosening of the skin, including inside the mouth unusual bleeding or bruising unusually weak or tired yellowing of the eyes or skin Side effects that usually do not require medical attention (report to your doctor or health animal care attendant if they continue or are bothersome): diarrhea dizziness headache loss of appetite nausea, vomiting nervousness What may interact with this medicine? Do not take this medicine with any of the following medications: aminobenzoate potassium dofetilide metronidazole This medicine may also interact with the following medications: GUILLAUME inhibitors like benazepril, enalapril, lisinopril, and ramipril cyclosporine digoxin diuretics indomethacin medicines for diabetes methenamine methotrexate phenytoin potassium supplements pyrimethamine sulfinpyrazone tricyclic antidepressants warfarin What if I miss a dose? If you miss a dose, take it as soon as you can. If it is almost time for your next dose, take only that dose. Do not take double or extra doses. Where should I keep my medicine? Keep out of the reach of children. Store at room temperature between 20 to 25 degrees C (68 to 77 degrees F). Protect from light. Throw away any unused medicine after the expiration date. What should I tell my health care provider before I take this medicine? They need to know if you have any of these conditions: anemia asthma being treated with anticonvulsants if you frequently drink alcohol containing drinks kidney disease liver disease low level of folic acid or [id number]-[id number] dehydrogenase poor nutrition or malabsorption porphyria severe allergies thyroid disorder an unusual or allergic reaction to sulfamethoxazole, trimethoprim, sulfa drugs, other medicines, foods, dyes, or preservatives or trying to get breast-feeding What should I watch for while using this medicine? Tell your doctor or health animal care attendant if your symptoms do not improve. Drink several glasses of water a day to reduce the risk of kidney problems. Do not treat diarrhea with over the counter products. Contact your doctor if you have diarrhea that lasts more than 2 days or if it is severe and watery. This medicine can make you more sensitive to the sun. Keep out of the sun. If you cannot avoid being in the sun, wear protective clothing and use a sunscreen. Do not use sun lamps or tanning beds/booths. Acetaminophen Oral tablet What is this medicine? ACETAMINOPHEN (a set a JERONIMO omega fen) is a pain reliever. It is used to treat mild pain and fever. How should I use this medicine? Take this medicine by mouth with a glass of water. Follow the directions on the package or prescription label. Take your medicine at regular intervals. Do not take your medicine more often than directed. Talk to your clinical statistics manager regarding the use of this medicine in children. While this drug may be prescribed for children as young as 6 years of age for selected conditions, precautions do apply. What side effects may I notice from receiving this medicine? Side effects that you should report to your doctor or health animal care attendant as soon as possible: allergic reactions like skin rash, itching or hives, swelling of the face, lips, or tongue breathing problems fever or sore throat redness, blistering, peeling or loosening of the skin, including inside the mouth trouble passing urine or change in the amount of urine unusual bleeding or bruising unusually weak or tired yellowing of the eyes or skin Side effects that usually do not require medical attention (report to your doctor or health animal care attendant if they continue or are bothersome): headache nausea, stomach upset What may interact with this medicine? alcohol imatinib isoniazid other medicines with acetaminophen What if I miss a dose? If you miss a dose, take it as soon as you can. If it is almost time for your next dose, take only that dose. Do not take double or extra doses. Where should I keep my medicine? Keep out of reach of children. Store at room temperature between 20 and 25 degrees C (68 and 77 degrees F). Protect from moisture and heat. Throw away any unused medicine after the expiration date. What should I tell my health care provider before I take this medicine? They need to know if you have any of these conditions: if you frequently drink alcohol containing drinks liver disease an unusual or allergic reaction to acetaminophen, other medicines, foods, dyes or preservatives or trying to get breast-feeding What should I watch for while using this medicine? Tell your doctor or health animal care attendant if the pain lasts more than 10 days (5 days for children), if it gets worse, or if there is a new or different kind of pain. Also, check with your doctor if a fever lasts for more than 3 days. Do not take other medicines that contain acetaminophen with this medicine. Always read labels carefully. If you have questions, ask your doctor or pharmacist. If you take too much acetaminophen get medical help right away. Too much acetaminophen can be very dangerous and cause liver damage. Even if you do not have symptoms, it is important to get help right away. Ibuprofen Oral tablet What is this medicine? IBUPROFEN (eye BYOO proe fen) is a non-steroidal anti-inflammatory drug (NSAID). It is used for dental pain, fever, headaches or migraines, osteoarthritis, rheumatoid arthritis, or painful monthly periods. It can also relieve minor aches and pains caused by a cold, flu, or sore throat. How should I use this medicine? Take this medicine by mouth with a glass of water. Follow the directions on the prescription label. Take this medicine with food if your stomach gets upset. Try to not lie down for at least 10 minutes after you take the medicine. Take your medicine at regular intervals. Do not take your medicine more often than directed. A special MedGuide will be given to you by the pharmacist with each prescription and refill. Be sure to read this information carefully each time. Talk to your clinical statistics manager regarding the use of this medicine in children. Special care may be needed. What side effects may I notice from receiving this medicine? Side effects that you should report to your doctor or health animal care attendant as soon as possible: allergic reactions like skin rash, itching or hives, swelling of the face, lips, or tongue black or bloody stools, blood in the urine or in vomit breathing problems changes in vision chest pain general ill feeling or flu-like symptoms nausea or vomiting redness, blistering, peeling or loosening of the skin, including inside the mouth slurred speech or weakness on one side of the body stomach pain unexplained weight gain or swelling unusually weak or tired yellowing of eyes or skin Side effects that usually do not require medical attention (report to your doctor or health animal care attendant if they continue or are bothersome): constipation or diarrhea dizziness gas or heartburn stomach upset What may interact with this medicine? Do not take this medicine with any of the following medications: cidofovir ketorolac methotrexate pemetrexed This medicine may also interact with the following medications: alcohol aspirin diuretics lithium other drugs for inflammation like prednisone warfarin What if I miss a dose? If you miss a dose, take it as soon as you can. If it is almost time for your next dose, take only that dose. Do not take double or extra doses. Where should I keep my medicine? Keep out of the reach of children. Store at room temperature between 15 and 30 degrees C (59 and 86 degrees F). Keep container tightly closed. Throw away any unused medicine after the expiration date. What should I tell my health care provider before I take this medicine? They need to know if you have any of these conditions: asthma cigarette smoker drink more than 3 alcohol containing drinks a day heart disease or circulation problems such as heart failure or leg edema (fluid retention) high blood pressure kidney disease liver disease stomach bleeding or ulcers an unusual or allergic reaction to ibuprofen, aspirin, other NSAIDS, other medicines, foods, dyes, or preservatives or trying to get breast-feeding What should I watch for while using this medicine? Tell your doctor or healthcare professional if your symptoms do not start to get better or if they get worse. This medicine does not prevent heart attack or stroke. In fact, this medicine may increase the chance of a heart attack or stroke. The chance may increase with longer use of this medicine and in people who have heart disease. If you take aspirin to prevent heart attack or stroke, talk with your doctor or health animal care attendant. Do not take other medicines that contain aspirin, ibuprofen, or naproxen with this medicine. Side effects such as stomach upset, nausea, or ulcers may be more likely to occur. Many medicines available without a prescription should not be taken with this medicine. This medicine can cause ulcers and bleeding in the stomach and intestines at any time during treatment. Ulcers and bleeding can happen without warning symptoms and can cause . To reduce your risk, do not smoke cigarettes or drink alcohol while you are taking this medicine. You may get drowsy or dizzy. Do not drive, use machinery, or do anything that needs mental alertness until you know how this medicine affects you. Do not stand or sit up quickly, especially if you are an older patient. This reduces the risk of dizzy or fainting spells. This medicine can cause you to bleed more easily. Try to avoid damage to your teeth and gums when you brush or floss your teeth. You have been given the following additional information: Cellulitis Marijuana Abuse Cephalexin Monohydrate Oral tablet Sulfamethoxazole, Trimethoprim Oral tablet Acetaminophen Oral tablet Ibuprofen Oral tablet (Electronically signed by Cleve Gupta DO 12/03/2016 3:10)
--- NOTE | 2016-12-03 03:11 | ED MAR SUMMARY ---
..... Medication Administration Record [facility] [address] [place] [address] Patient: BERNARDINO JACOBSON Visit ID: [id number] 31y, F Weight: 58.9 kg Height/Length: 63 in BMI: 23 ALLERGIES: Latex Given :12/02/2016 Dannielle Yee R.N. Medication Administered: BACTRIM DS [PO] (SULFAMETHOXAZOLE-TMP DS), Dose: 2 tab Tablets PO. Medication Ordered: Bactrim DS PO (Tablet 800-160 mg) 2 tabs (NOW). Given 12/02/2016 Dannielle Yee R.N. Medication Administered: KEFLEX [PO] (CEPHALEXIN), Dose: 500 mg Tablets PO. Medication Ordered: Keflex PO 500 mg (NOW). Given 12/02/2016 Dannielle Yee R.N. Medication Administered: ACETAMINOPHEN [PO] (APAP), Dose: 1000 mg Tablets PO. Medication Ordered: Acetaminophen PO 1,000 mg (NOW). Given 12/02/2016 Dannielle Yee R.N. Medication Administered: IBUPROFEN [PO], Dose: 600 mg Tablets PO. Medication Ordered: Ibuprofen PO 600 mg (NOW). Given 12/02/2016 Dannielle Yee R.N. Medication Administered: ZOFRAN ODT [PO] (ONDANSETRON), Dose: 4 mg Oral Disintegrating Tablets PO. Medication Ordered: Zofran ODT PO 4 mg (NOW).
== END 2016-12-02 21:27 | disposition home or self-care (01) ==
LOC: ED SRH 18:40
DX: L03.031 Cellulitis of right toe (principal); F17.210 Nicotine dependence, cigarettes, uncomplicated; F12.10 Cannabis abuse, uncomplicated; Z90.81 Acquired absence of spleen

== ENCOUNTER 2017-01-05 01:12 | Emergency (ER) | payer OTHER ==
--- NOTE | 2017-01-05 02:47 | ED NURSING NOTES ---
Clinical Report - Nurses [facility] [address] [place] [address] 01/05/2017 1:12 Patient: BERNARDINO JACOBSON TRIAGE Triage time 01:19 Jan 05 2017. Chief Complaint: (redness on right outer toe at joint with foot). 01:24 01/05/17. --01:24 Daylin Adrian R.N. 01:24 01/05/17. BP: 137/89. HR: 82. RR: 18. O2 saturation: 100%. Temp: 97.9 F. Pain level now 0/10. --01:24 Daylin Adrian R.N. Acuity: LEVEL 4. SEPSIS SCREEN: Sepsis Screen: negative. Negative (no infection suspected/documented). CJ COMA SCORE: [place] Coma Scale: 15- eyes open spontaneously (4); best verbal response- oriented x 4 (5); best motor response- obeys commands (6). --01:24 Daylin Adrian R.N. Weight: 56.6 kg stated. Height/Length: 63 inches Per Patient. BMI: 22.1. --01:18 Daylin Adrian R.N. Medications None. --01:21 Daylin Adrian R.N. Allergies No Known Drug Allergy. --01:21 Daylin Adrian R.N. Medication/allergy information source: the patient. --01:24 Daylin Adrian R.N. History Arrived by private vehicle. Historian: patient. ( problems for last 2 months, concerned with osteomyelitis. has been treated with multiple abx. just completed 2.). Treatment FIELD SUPPORT TECHNICIAN: None. PAST MEDICAL HX: Last normal menstrual period- Dec 28. Sexual history - sexually active. No contraception. SOCIAL HX: Heavy tobacco smoker- less than 1 pack per day. Regular alcohol use. History of drug use: marijuana. Recently used drugs yesterday. No infectious disease exposure. ABUSE ASSESSMENT: No report of abuse. SELF HARM ASSESSMENT: A self harm assessment was performed. The patient answered "no" to the question "Have you recently felt down, depressed, or hopeless?", "Have you noticed less interest or pleasure in doing things?", "Do you have thoughts of harming or killing yourself?", "Are you here because you tried to hurt yourself?", "Have you ever tried to hurt yourself before today?", "Have you recently had thoughts about harming or killing others?" and "Do you have any dangerous items in your possession?". --01:24 Daylin Adrina R.N. PROBLEMS: Substance Abuse. Abscess Check. Abscess. --01:22 Daylin Adrian R.N. ADDITIONAL SURGERIES: Splenectomy. --01:22 Daylin Adrian R.N. Interventions ID band on patient. --01:24 Daylin Adrian R.N. PHYSICAL ASSESSMENT 01:25 01/05/17. Ambulatory to room. GENERAL / NEURO / PSYCH: Alert. Oriented X 4. HEENT: No facial asymmetry noted. Mucous membranes are pink. CVS: Pulses within normal limits. GI / : Abdomen nontender. SKIN: Skin intact. Skin is warm and dry. Normal skin turgor. Small area of erythema to right foot. --01:25 Daylin Adrian R.N. NURSING PROGRESS NOTES 01:25 01/05/17. The initial plan of care for this patient has been created. Reassurance given. Patient identifiers checked. Call light placed in reach. Side rails up. Bed placed in lowest position. Brakes of bed on. Patient ready for evaluation. --01:25 Daylin Adrian R.N. 01:01/05/17. Care transferred and report given (to Jasbir Carver RN). --01:31 Daylin Adrian R.N. DISPOSITION / DISCHARGE 04:00 01/05/17. BP: 144/79. HR: 74. RR: 16. O2 saturation: 97% on room air. Temp: 98.7 F (oral). Pain level now: 2/10. --07:08 Jasbir Gross R.N. Departure time: 0400. --07:08 Jasbir Gross R.N. 04:00. No learning barriers present. Discharge instructions provided and reviewed with the patient. Treatments reviewed (Apply ice packs per discharge instructions). Reviewed referral to family practice for followup. Patient verbalized understanding. Written instructions provided in Thai. The patient was discharged by the physician. She was discharged home and accompanied by family. She left the Emergency Department ambulatory and via private vehicle. Patient driving. --07:10 Jasbir Gross R.N. Locked/Released at 01/05/2017 7:10 by Jasbir Gross R.N.
--- NOTE | 2017-01-05 02:47 | ED ORDER SUMMARY ---
..... Patient: BERNARDINO JACOBSON OrderSheet [facility] VisitID: [id number] [address] [place] [address] 31y, F Registration Date/Time: 01/05/2017 ORDER SHEET Weight: 56.6 kg (stated) Allergies: No Known Drug Allergy GENERAL ORDERS: Foot 3V Right Urgent (02:11 01/05/2017 Marcia MONTENEGRO) (Ack 2:14 Mandie) (2:31 RFay) MEDICATION ORDERS: IV FLUIDS: ORDER SHEET NOTES: [Electronically signed by Jasbir Gross R.N. (07:10 01/05/2017)] [Electronically signed by Saida Orellana MD (13:08 01/09/2017)] [Electronically locked/signed by Jasbir Gross R.N. (07:10 01/05/2017)]
--- NOTE | 2017-01-05 02:47 | ED ORDER SUMMARY ---
..... Patient: BERNARDINO JACOBSON OrderSheet [facility] VisitID: [id number] [address] [place] [address] 31y, F Registration Date/Time: 01/05/2017 ORDER SHEET Weight: 56.6 kg (stated) Allergies: No Known Drug Allergy GENERAL ORDERS: Foot 3V Right Urgent (02:11 01/05/2017 aMrcia MONTENEGRO) (Ack 2:14 Mandie) (2:31 RFay) MEDICATION ORDERS: IV FLUIDS: ORDER SHEET NOTES: [Electronically signed by Jasbir Gross R.N. (07:10 01/05/2017)] [Electronically signed by Saida Orellana MD (13:08 01/09/2017)] [Electronically locked/signed by Jasbir Gross R.N. (07:10 01/05/2017)]
--- NOTE | 2017-01-05 02:47 | ED CLINICAL REPORT ---
Clinical Report - Physicians/Mid Levels [facility] [address] [place] [address] 01/05/2017 1:12 Patient: BERNARDINO JACOBSON Time Seen: 01:55. Arrived- By private vehicle. Historian- patient. HISTORY OF PRESENT ILLNESS Chief Complaint: ; ;(redness on foot). Not worsened by anything and relieved by anything. This started yesterday and is still present. Severity is described as being mild. Quality not described as "pain". Symptoms located in the area of the right foot. The patient has had mild redness. She has had new onset of mild swelling of the right foot and mild swelling of the right 5th toe. No difficulty walking. No bladder dysfunction, bowel dysfunction, sensory loss or motor loss. ( PT states she is concerned, because she had a "bone infection" in the area previously. No fevers. No skin breakdown.). Patient denies an injury. Similar symptoms previously: Worse. Recent medical care: Not recently seen/assessed. REVIEW OF SYSTEMS No cough, chest pain, difficulty breathing, fever or skin rash. No enlarged lymph nodes, neck pain, back pain, headache or blurred vision. No sore throat, abdominal pain, vomiting, diarrhea or black stools. No difficulty with urination or bloody stools. All systems otherwise negative, except as recorded above. PAST HISTORY Problems: Substance Abuse. Abscess. Immunizations. LNMP - Last Normal Menstrual Period. Additional Surgeries: Splenectomy. Medications: None. Allergies: No Known Drug Allergy. SOCIAL HISTORY Smoker- current status unknown. Alcohol use. History of drug use: marijuana. ADDITIONAL NOTES The nursing notes have been reviewed. PHYSICAL EXAM Vital Signs: 01/05/2017 01:24 BP: 137/89. HR: 82. RR: 18. O2 saturation: 100%. Temp: 97.9 F. Have been reviewed. Appearance: Alert. Oriented X3. No acute distress. Eyes: Eyes normal inspection. ENT: Nose normal. Neck: Neck supple. CVS: Pulses normal. Strong peripheral pulses. Respiratory: No respiratory distress. Back: ROM normal. Skin: Skin intact. Skin warm and dry. Normal skin turgor. Extremities: Right foot: mild erythema and swelling located in the distal dorsal lateral aspect of the foot and fifth toe(s). Neurovascular intact distally. (Located over 5th MTP joint.). No tenderness, laceration, abrasion, ecchymosis or puncture wound. No foreign body or deformity. No limitation of weight bearing. Extremities otherwise negative. Neuro: No motor deficit. No sensory deficit. (Grossly oriented.). LABS, X-RAYS, AND EKG Rt Foot X-ray: No fracture. Normal alignment. No bony lesion, air in the soft tissue or foreign body. Soft tissues normal. Joint spaces normal. Views: 3 view foot series. Technique: good. The X-rays were independently viewed by me and interpreted contemporaneously by me. Prior films were not available for comparison. Pulse Oximetry: 01/05/2017 01:24 O2 saturation: 100%. (FIO2 - room air). Interpretation: normal. PROGRESS AND PROCEDURES Course of Care: D/w pt: There is no evidence of infection or other serious problem. We have discussed pt's footwear potentially being the problem. No emergent condition identified. Patient counseled in person regarding the patient's stable condition, test results, diagnosis and need for follow-up. Concerns were addressed. Old medical records reviewed. Disposition: Discharged. Condition: stable. CLINICAL IMPRESSION Single contusion to the right 5th toe.No right toenail injury. INSTRUCTIONS Apply ice for 15 minutes two times a day as needed and until better. Don't apply ice directly to skin and don't use while asleep. (There is no evidence of infection at this time, and your x-rays look good.). Warnings: GENERAL WARNINGS: Return or contact your physician immediately if your condition worsens or changes unexpectedly, if not improving as expected, or if other problems arise. Follow-up: Follow up with your doctor as needed. Understanding of the discharge instructions verbalized by patient. (Electronically signed by Saida Orellana MD 01/09/2017 13:08)
--- NOTE | 2017-01-05 02:47 | ED NURSING NOTES ---
Clinical Report - Nurses [facility] [address] [place] [address] 01/05/2017 1:12 Patient: BERNARDINO JACOBSON TRIAGE Triage time 01:19 Jan 05 2017. Chief Complaint: (redness on right outer toe at joint with foot). 01:24 01/05/17. --01:24 Daylin Adrian R.N. 01:24 01/05/17. BP: 137/89. HR: 82. RR: 18. O2 saturation: 100%. Temp: 97.9 F. Pain level now 0/10. --01:24 Daylin Adrian R.N. Acuity: LEVEL 4. SEPSIS SCREEN: Sepsis Screen: negative. Negative (no infection suspected/documented). CJ COMA SCORE: [place] Coma Scale: 15- eyes open spontaneously (4); best verbal response- oriented x 4 (5); best motor response- obeys commands (6). --01:24 Daylin Adrian R.N. Weight: 56.6 kg stated. Height/Length: 63 inches Per Patient. BMI: 22.1. --01:18 Daylin Adrian R.N. Medications None. --01:21 Daylin Adrian R.N. Allergies No Known Drug Allergy. --01:21 Daylin Adrian R.N. Medication/allergy information source: the patient. --01:24 Daylin Adrian R.N. History Arrived by private vehicle. Historian: patient. ( problems for last 2 months, concerned with osteomyelitis. has been treated with multiple abx. just completed 2.). Treatment SYSTEM OPERATOR: None. PAST MEDICAL HX: Last normal menstrual period- Dec 28. Sexual history - sexually active. No contraception. SOCIAL HX: Heavy tobacco smoker- less than 1 pack per day. Regular alcohol use. History of drug use: marijuana. Recently used drugs yesterday. No infectious disease exposure. ABUSE ASSESSMENT: No report of abuse. SELF HARM ASSESSMENT: A self harm assessment was performed. The patient answered "no" to the question "Have you recently felt down, depressed, or hopeless?", "Have you noticed less interest or pleasure in doing things?", "Do you have thoughts of harming or killing yourself?", "Are you here because you tried to hurt yourself?", "Have you ever tried to hurt yourself before today?", "Have you recently had thoughts about harming or killing others?" and "Do you have any dangerous items in your possession?". --01:24 Daylin Adrian R.N. PROBLEMS: Substance Abuse. Abscess Check. Abscess. --01:22 Daylin Adrian R.N. ADDITIONAL SURGERIES: Splenectomy. --01:22 Daylin Adrian R.N. Interventions ID band on patient. --01:24 Daylin Adrian R.N. PHYSICAL ASSESSMENT 01:25 01/05/17. Ambulatory to room. GENERAL / NEURO / PSYCH: Alert. Oriented X 4. HEENT: No facial asymmetry noted. Mucous membranes are pink. CVS: Pulses within normal limits. GI / : Abdomen nontender. SKIN: Skin intact. Skin is warm and dry. Normal skin turgor. Small area of erythema to right foot. --01:25 aDylin Adrian R.N. NURSING PROGRESS NOTES 01:25 01/05/17. The initial plan of care for this patient has been created. Reassurance given. Patient identifiers checked. Call light placed in reach. Side rails up. Bed placed in lowest position. Brakes of bed on. Patient ready for evaluation. --01:25 Daylin Adrian R.N. 01:01/05/17. Care transferred and report given (to Jasbir Carver RN). --01:31 Daylin Adrian R.N. DISPOSITION / DISCHARGE 04:00 01/05/17. BP: 144/79. HR: 74. RR: 16. O2 saturation: 97% on room air. Temp: 98.7 F (oral). Pain level now: 2/10. --07:08 Jasbir Gross R.N. Departure time: 0400. --07:08 Jasbir Gross R.N. 04:00. No learning barriers present. Discharge instructions provided and reviewed with the patient. Treatments reviewed (Apply ice packs per discharge instructions). Reviewed referral to family practice for followup. Patient verbalized understanding. Written instructions provided in Turkish. The patient was discharged by the physician. She was discharged home and accompanied by family. She left the Emergency Department ambulatory and via private vehicle. Patient driving. --07:10 Jasbir Gross R.N. Locked/Released at 01/05/2017 7:10 by Jasbir Gross R.N.
--- NOTE | 2017-01-05 05:53 | DIAGNOSTIC IMAGING REPORT ---
PROCEDURE: XR FOOT 3 VIEWS - RIGHT INDICATION: TRAUMA/INJURY TECHNIQUE: Three views. COMPARISON: None. FINDINGS: Osseous structures and joint spaces are normal. IMPRESSION: 1. Normal right foot.
--- NOTE | 2017-01-09 13:08 | ED MED RECONCILIATION SUMMARY ---
Patient: BERNARDINO JACOBSON Medication Reconciliation Report Located [facility] VisitID: [id number] [address] [place] [address] 31y, F Registration Date/Time: 01/05/2017 Weight: 56.6 kg Height/Length: 63 in. BMI: 22.1 ALLERGIES: No Known Drug Allergy The patient's Home Medications are listed below: NONE. The source(s) of the original Home Medication information: patient The following Medications were given to the patient in the Emergency Department: None. The following Medications were prescribed to the patient: None.
--- NOTE | 2017-01-09 13:08 | ED MAR SUMMARY ---
..... Medication Administration Record [facility] [address], [place] [id number] Patient: BERNARDINO JACOBSON Visit ID: [id number] 31y, F Weight: 56.6 kg Height/Length: 63 in BMI: 22.1 ALLERGIES: No Known Drug Allergy
--- NOTE | 2017-01-09 13:08 | ED MAR SUMMARY ---
..... Medication Administration Record [facility] [address], [place] [id number] Patient: BERNARDINO JACOBSON Visit ID: [id number] 31y, F Weight: 56.6 kg Height/Length: 63 in BMI: 22.1 ALLERGIES: No Known Drug Allergy
--- NOTE | 2017-01-09 13:08 | ED MED RECONCILIATION SUMMARY ---
Patient: BERNARDINO JACOBSON Medication Reconciliation Report [facility] VisitID: [id number] [address] [place] [address] 31y, F Registration Date/Time: 01/05/2017 Weight: 56.6 kg Height/Length: 63 in. BMI: 22.1 ALLERGIES: No Known Drug Allergy The patient's Home Medications are listed below: NONE. The source(s) of the original Home Medication information: patient The following Medications were given to the patient in the Emergency Department: None. The following Medications were prescribed to the patient: None.
--- NOTE | 2017-01-09 13:08 | ED DISCHARGE INSTRUCTIONS ---
Patient: BERNARDINO JACOBSON General Instructions [facility] VisitID: [id number] [place] [address] 31y, F Registration Date/Time: 01/05/2017 Single contusion to the right 5th toe.No right toenail injury. INSTRUCTIONS Apply ice for 15 minutes two times a day as needed and until better. Don't apply ice directly to skin and don't use while asleep. (There is no evidence of infection at this time, and your x-rays look good.). Warnings: GENERAL WARNINGS: Return or contact your physician immediately if your condition worsens or changes unexpectedly, if not improving as expected, or if other problems arise. Follow-up: Follow up with your doctor as needed. Understanding of the discharge instructions verbalized by patient. ADDITIONAL INFORMATION Contusion: Foot You have a CONTUSION of your foot. This causes local pain, swelling and sometimes bruising. There are no broken bones. This injury may take from a few days to a few weeks to heal. Home Care: 1) Keep your LEG elevated to reduce pain and swelling. This is very important during the first 48 hours. If walking causes pain, stay off the injured leg until you can walk without pain. 2) If CRUTCHES have been advised, do not bear full weight on the injured leg until you can do so without pain. You may return to sports when you are able to hop and run on the injured leg without pain. 3) Make an ice pack (ice cubes in a plastic bag, wrapped in a towel) and apply for 20 minutes every 1-2 hours the first day. Continue this 3-4 times a day until the swelling goes down. 4) You may use acetaminophen (Tylenol) or ibuprofen (Motrin, Advil) to control pain, unless another pain medicine was prescribed. [ NOTE : If you have chronic liver or kidney disease or ever had a stomach ulcer or GI bleeding, talk with your doctor before using these medicines.] Follow Up with your doctor or this facility if you are not starting to improve within the next THREE days. [NOTE: If X-rays were taken, they will be reviewed by a radiologist. You will be notified of any new findings that may affect your care.] Get Prompt Medical Attention if any of the following occur: -- Pain or swelling increases -- Toes become cold, blue, numb or tingly -- Redness, warmth or drainage from the skin You have been given the following additional information: Contusion, Foot (Electronically signed by Saida Orellana MD 01/09/2017 13:08)
== END 2017-01-05 04:00 | disposition home or self-care (01) ==
LOC: ED SRH 01:12
DX: S90.121A Contusion of right lesser toe(s) without damage to nail, initial encounter (principal); X58.XXXA Exposure to other specified factors, initial encounter; Y93.9 Activity, unspecified; Y92.9 Unspecified place or not applicable; Y99.9 Unspecified external cause status